=== PATIENT | female | born 1995 | race Hispanic/Latino ===

== ENCOUNTER 2017-07-30 23:47 | Emergency (ER) | payer BC, OTHER ==
[2017-07-30 23:47] VITALS: BMI 32.7
[2017-07-31] MEDS ORDERED: Lactated Ringer's 1,000 ML IVB ONE (00:14)
[2017-07-31] MEDS ORDERED: Lactated Ringer's 1,000 ML ONE (00:24)
[2017-07-31 00:29] LABS: BASO % 0.3 % (0.0-2.0); LYMPH # 0.7 K/uL (1.0-4.3); MEAN CELL VOLUME 76.9 fL (81.0-99.0); MEAN CORPUSCULAR HEMOGLOBIN 25.7 pg (27.0-31.0); MEAN CORPUSCULAR HGB CONC 33.4 g/dL (33.0-37.0); MONO # 0.7 K/uL (0.0-0.8); MONO % 7.6 % (0.0-10.0); NEUT # 7.5 K/uL (1.8-7.0); NEUT % 84.1 % (50.0-75.0); PLATELET COUNT 221 K/uL (130-400); RBC 4.29 Mil/uL (3.80-5.20); RED CELL DISTRIBUTION WIDTH 15.1 % (11.5-14.5); WHITE BLOOD COUNT 8.9 K/uL (4.8-10.8)
[2017-07-31 00:38] LABS: ALBUMIN 3.5 g/dL (3.5-5.0); ALT/SGPT 25 U/L (9-52); AST/SGOT 27 U/L (14-36); BLOOD UREA NITROGEN 7 mg/dL (7-17); CALCIUM 8.5 mg/dl (8.6-10.4); GFR AFRICAN-AMERICAN > 60; GFR NON-AFRICAN AMERICAN > 60
[2017-07-31 01:46] LABS: BANDS 1 % (0-2); LYMPHOCYTE 8 % (20-40); MONOCYTE 9 % (0-10); NEUTROPHIL 82 % (50-75); PLATELET ESTIMATE NORMAL (NORMAL); TOTAL CELLS COUNTED 100
[2017-07-31 02:28] LABS: SQUAMOUS EPITHIAL 24 /hpf (0-5); URINE BACTERIA RARE (<OCC); URINE BILIRUBIN NEGATIVE (NEGATIVE); URINE BLOOD NEGATIVE (NEGATIVE); URINE CLARITY Hazy (Clear); URINE COLOR Amber (YELLOW); URINE GLUCOSE (UA) NORMAL (Normal); URINE LEUKOCYTE ESTERASE NEG Leu/uL (Negative); URINE NITRATE NEGATIVE (NEGATIVE); URINE PROTEIN 2+ mg/dL (NEGATIVE); URINE UROBILINOGEN NORMAL mg/dL (0.2-1.0)
--- NOTE | 2017-07-31 02:36 | C.PDOC ---
Time Seen by Provider: 07/31/17 00:03 Chief Complaint (Nursing): Fever History Per: Patient Onset/Duration Of Symptoms: Days (1) Current Symptoms Are (Timing): Still Present Associated Symptoms: Fever, Nasal Congestion, Diarrhea Severity: Moderate Recent travel outside of the [place]: No Additional History Per: Prior Records Past Medical History Reviewed: Historical Data, Nursing Documentation, Vital Signs Vital Signs: Last Vital Signs Temp 98.4 F 07/31/17 01:15 Pulse 112 H 07/31/17 01:15 Resp 18 07/31/17 01:15 BP 104/65 07/31/17 01:15 Pulse Ox 98 07/31/17 01:15 - Medical History PMH: No Chronic Diseases Other PMH: Pt is 34 weeks Surgical History: No Surg Hx Family History: States: Unknown Family Hx - Social History Hx Tobacco Use: No Hx Alcohol Use: No Hx Substance Use: No - Immunization History Hx Tetanus Toxoid Vaccination: Yes Hx Influenza Vaccination: Yes Hx Pneumococcal Vaccination: No Review Of Systems Except As Marked, All Systems Reviewed And Found Negative. Constitutional: Positive for: Fever ENT: Positive for: Nose Congestion. Negative for: Ear Pain Cardiovascular: Negative for: Chest Pain Respiratory: Negative for: Shortness of Breath Gastrointestinal: Positive for: Diarrhea. Negative for: Vomiting, Abdominal Pain, Hematochezia Genitourinary: Negative for: Dysuria, Vaginal Discharge, Vaginal Bleeding Musculoskeletal: Negative for: Neck Pain, Back Pain Skin: Negative for: Rash Neurological: Negative for: Weakness, Numbness, Seizures, Altered Mental Status Physical Exam - Physical Exam Appears: Non-toxic, No Acute Distress Skin: Normal Color, Warm, Dry, No Rash Head: Atraumatic, Normacephalic Eye(s): bilateral: Normal Inspection, PERRL, EOMI Oral Mucosa: Moist Neck: Normal ROM, Supple Lymphatic: No Adenopathy Cardiovascular: Rhythm Regular Respiratory: Normal Breath Sounds, No Accessory Muscle Use Gastrointestinal/Abdominal: Soft, No Tenderness, Other (Gravid) Back: No CVA Tenderness Extremity: Normal ROM Neurological/Psych: Oriented x3, Normal Speech, Normal Motor, Normal Sensation ED Course And Treatment - Laboratory Results Result Diagrams: 07/31/17 00:22 07/31/17 00:22 O2 Sat by Pulse Oximetry: 98 Pulse Ox Interpretation: Normal Progress - Interventions Interventions:: Observation, Intravenous fluid - Medications Administered Oral: Acetaminophen - Data Reviewed Data Reviewed: Lab, Old records - Patient Status Patient status: Mostly improved - Continuity of Care Discussed patient case with:: Patient, ED Nurse - Patient Plan Patient Plan: Discharge, F/U with PCP Disposition Counseled Patient/Family Regarding: Studies Performed, Diagnosis, Need For Followup - Disposition Referrals: Edis Mcgee MD [Medical Doctor] - Disposition: HOME/ ROUTINE Disposition Time: 02:37 Condition: IMPROVED Additional Instructions: Drink plenty of fluids. BRAT diet as discussed. Follow up with your doctor. Return to the ER if you develop high fever, not tolerating fluids, abdominal pain, vomiting, bloody diarrhea, worsening of symptoms or if you have any other concerns. Instructions: Acute Diarrhea (ED) - Clinical Impression Clinical Impression: Diarrhea, Influenza-like illness
[2017-07-31 02:54] VITALS: BP 102/70; PULSE 94; RESP 20; TEMP 97.2; O2SAT 99
== END 2017-07-31 02:54 | disposition home or self-care (01) ==
LOC: C.ER 23:47
DX: J11.1 Influenza due to unidentified influenza virus with other respiratory manifestations (principal); R19.7 Diarrhea, unspecified
CPT/HCPCS: 80053; 81001; 85025; 87086; 87804; 99285; J7120